=== PATIENT | female | born 1955 | race African-American/Black ===

== ENCOUNTER 2018-07-16 11:22 | Emergency (ER) | payer SELFPAY ==
[2018-07-16 16:21] LABS: ADD MAN DIFF? NO
[2018-07-16 16:26] LABS: WHITE BLOOD COUNT 3.2 10^3/ul (4.8-10.8)
[2018-07-16 16:26] LABS: ABNORMAL IP MESSAGE 1; BASOPHILS % 0.3 % (0.0-2.0); HEMATOCRIT 35.8 % (37.0-47.0); HEMOGLOBIN 11.8 g/dl (12.0-16.0); LYMPHOCYTES # 0.3 10^3/ul (0.8-2.9); MEAN CORPUSCULAR HEMOGLOBIN 23.8 pg (29.0-33.0); MEAN CORPUSCULAR VOLUME 72.2 fl (82.0-101.0); MEAN PLATELET VOLUME 11.7 fl (7.4-10.4); MONOCYTE # 0.2 10^3/ul (0.3-0.9); MONOCYTES % 5.6 % (0.0-11.0); NEUTROPHIL # 2.7 10^3/ul (1.6-7.5); NEUTROPHILS % 84.5 % (39.0-77.0); PLATELET COUNT 105 10^3/UL (140-415); RED BLOOD COUNT 4.96 10^6/ul (4.20-5.40); RED CELL DISTRIBUTION WIDTH 15.4 % (11.5-14.5)
[2018-07-16 16:29] LABS: POSITIVE DIFF @See below
[2018-07-16 16:39] LABS: INR 1.19; PROTIME 15.2 Sec (11.9-14.9); PT RATIO 1.2
[2018-07-16 16:40] LABS: PARTIAL THROMBOPLASTIN TIME 28.2 Sec (23.0-35.0)
[2018-07-16 16:42] LABS: URINE BLOOD (Dip) POC 1+ (NEGATIVE); URINE GLUCOSE (Dip) POC Negative (NEGATIVE); URINE KETONES (Dip) POC Trace (NEGATIVE); URINE LEUKOCYTE EST (Dip) POC Negative (NEGATIVE); URINE NITRITE (Dip) POC Negative (NEGATIVE); URINE TOTAL PROTEIN POC 2+ (NEGATIVE)
[2018-07-16 16:43] LABS: ANION GAP 8 (5-13); BLOOD UREA NITROGEN 12 mg/dl (7-20); CALCIUM 9.5 mg/dl (8.4-10.2); CARBON DIOXIDE 23 mmol/L (21-31); CHLORIDE 108 mmol/L (97-110); CREATININE 1.24 mg/dl (0.44-1.00); Estimated GFR 44 mL/min (>60); GLUCOSE 152 mg/dl (70-220); POTASSIUM 3.8 mmol/L (3.5-5.1); SODIUM 139 mmol/L (135-144)
[2018-07-16 16:53] LABS: B-TYPE NATRIURETIC PEPTIDE 1050 PG/ML (0-125)
[2018-07-16 16:56] LABS: TROPONIN-I < 0.012 ng/ml (0.000-0.120)
== END 2018-07-16 18:19 | disposition home or self-care (01) ==
LOC: E/R 11:22
DX: I11.0 Hypertensive heart disease with heart failure (principal); I50.9 Heart failure, unspecified; D61.818 Other pancytopenia; R31.9 Hematuria, unspecified; E11.9 Type 2 diabetes mellitus without complications
CPT/HCPCS: 36415; 71045; 80048; 81003; 83880; 84484; 85025; 85610; 85730; 93005; 93970; 99285-25